=== PATIENT | male | born 1995 | race Caucasian/White ===

== ENCOUNTER → 2021-08-11 12:35 | Outpatient (BNVA) | payer OTHER, SELFPAY | PROVIDERS: Visit Provider Physician Assistant | DX: S63.642A Sprain of metacarpophalangeal joint of left thumb, initial encounter (principal); S63.641A Sprain of metacarpophalangeal joint of right thumb, initial encounter; X50.1XXA Overexertion from prolonged static or awkward postures, initial encounter | CPT/HCPCS: 99203 ==

== ENCOUNTER → 2021-08-16 13:34 | Outpatient (BNVA) | payer OTHER, SELFPAY | PROVIDERS: Visit Provider Physician Assistant Medical | DX: S63.602A Unspecified sprain of left thumb, initial encounter (principal); S63.601A Unspecified sprain of right thumb, initial encounter; X58.XXXA Exposure to other specified factors, initial encounter | CPT/HCPCS: 99213 ==

== ENCOUNTER → 2021-08-30 13:52 | Outpatient (BNVA) | payer OTHER, SELFPAY | PROVIDERS: Visit Provider Physician Assistant Medical | DX: S63.602D Unspecified sprain of left thumb, subsequent encounter (principal); S63.601D Unspecified sprain of right thumb, subsequent encounter; X58.XXXD Exposure to other specified factors, subsequent encounter | CPT/HCPCS: 99213 ==

== ENCOUNTER → 2024-05-23 09:23 | Outpatient (BNVA) | payer OTHER, SELFPAY | PROVIDERS: Visit Provider Registered Nurse | DX: S00.03XA Contusion of scalp, initial encounter (principal); Y04.2XXA Assault by strike against or bumped into by another person, initial encounter | CPT/HCPCS: 99202 ==

== ENCOUNTER → 2024-08-28 15:46 | Outpatient (BNVA) | payer OTHER, SELFPAY | PROVIDERS: Visit Provider Physician Assistant Medical | DX: S19.89XA Other specified injuries of other specified part of neck, initial encounter (principal); S00.83XA Contusion of other part of head, initial encounter; Y04.2XXA Assault by strike against or bumped into by another person, initial encounter; S50.872A Other superficial bite of left forearm, initial encounter; Y04.1XXA Assault by human bite, initial encounter; J45.998 Other asthma | CPT/HCPCS: 99203 ==